=== PATIENT | female | born 1945 | race Hispanic/Latino ===

== ENCOUNTER 2016-10-06 07:15 | Day surgery (SDC) | payer MEDICARE ==
[2016-09-28 08:10] VITALS: BMI 26.9
[2016-10-06] MEDS ORDERED: Propofol 10 mg/ml Inj (20 ML) ONE (08:31)
[2016-10-06] MEDS ORDERED: Sodium Chloride 0.9% 1,000 ML IV SCH (09:00)
[2016-10-06 11:22] VITALS: BP 144/69; PULSE 53; RESP 18; TEMP 98.1; O2SAT 98
== END 2016-10-06 10:40 | disposition home or self-care (01) ==
LOC: ENDO 07:15
PROVIDERS: ATTEND Internal Medicine Gastroenterology
DX: K22.70 Barrett's esophagus without dysplasia (principal); K25.9 Gastric ulcer, unspecified as acute or chronic, without hemorrhage or perforation; K29.80 Duodenitis without bleeding; I10 Essential (primary) hypertension; J45.909 Unspecified asthma, uncomplicated
CPT/HCPCS: 43239; 88305; 88312; 88342; J2704; J7040 ×2

== ENCOUNTER 2016-12-08 08:56 | Day surgery (SDC) | payer MEDICARE ==
[2016-09-28 08:10] VITALS: BMI 26.9
[2016-12-08] MEDS ORDERED: Propofol 10 mg/ml Inj (20 ML) ONE (11:35)
[2016-12-08] MEDS ORDERED: Midazolam 2 MG/2 ML VIAL ONE (11:35)
[2016-12-08] MEDS ORDERED: Sodium Chloride 0.9% 1,000 ML IV SCH (12:00)
[2016-12-08 12:25] VITALS: PULSE 51
[2016-12-08 12:47] VITALS: BP 149/74; RESP 18; TEMP 97.9; O2SAT 98
== END 2016-12-08 13:31 | disposition home or self-care (01) ==
LOC: ENDO 08:56
PROVIDERS: ATTEND Internal Medicine Gastroenterology
DX: K25.7 Chronic gastric ulcer without hemorrhage or perforation (principal); K29.50 Unspecified chronic gastritis without bleeding
CPT/HCPCS: 43239; 88305; 88342; J2250; J2704; J7040 ×2

== ENCOUNTER 2017-12-19 12:22 | Day surgery (SDC) | payer MEDICARE, OTHER ==
[2017-12-17 14:12] VITALS: BMI 22.4
[2017-12-19 12:57] LABS: BASO # 0.05 K/mm3 (0.0-2.0); BASO % 0.5 % (0.0-3.0); EOS # 0.4 (0.0-0.7); EOS % 3.8 % (1.5-5.0); GRAN # 5.65 (1.4-6.5); GRAN % 57.7 % (50.0-68.0); HEMOGLOBIN 13.5 g/dL (12.0-16.0); LYMPH % 30.7 % (22.0-35.0); MEAN CELL VOLUME 94.9 fl (80.0-105.0); MEAN CORPUSCULAR HEMOGLOBIN 32.8 pg (25.0-35.0); MEAN CORPUSCULAR HGB CONC 34.6 g/dl (31.0-37.0); MEAN PLATELET VOLUME 9.2 fl (7.0-11.0); MONO # 0.7 (0.1-0.6); MONO % 7.3 % (1.0-6.0); RBC 4.11 10^6/uL (3.5-6.1); RED CELL DISTRIBUTION WIDTH 13.1 % (11.5-14.5); WHITE BLOOD COUNT 9.8 10^3/ul (4.5-11.0)
[2017-12-19 13:02] LABS: BLOOD UREA NITROGEN 16 mg/dL (7-21); CALCIUM 9.3 mg/dL (8.4-10.5); GFR NON-AFRICAN AMERICAN 54
[2017-12-19 13:03] LABS: INR 1.01; PARTIAL THROMBOPLASTIN TIME 30.3 Seconds (25.1-36.5); PROTHROMBIN TIME 11.5 SECONDS (9.4-12.5)
[2017-12-19] MEDS ORDERED: Lidocaine PF 2% (5 ml) Inj (For Cardiac Arrhy) ONE (13:34)
[2017-12-19] MEDS ORDERED: Midazolam 2 MG/2 ML VIAL ONE (14:35)
[2017-12-19] MEDS ORDERED: Oxycodone/Acetaminophen 5/325 mg Tab PO PRN (15:17)
[2017-12-19] MEDS ORDERED: Sodium Chloride 0.45% 1,000 ML IV SCH (15:30)
[2017-12-19] MEDS ORDERED: Metoprolol 1 mg/ml Inj IVP ONE ×6 (15:43→16:25)
--- NOTE | 2017-12-19 19:22 | VASCULAR ---
PROCEDURE: Ultrasound and fluoroscopic right internal jugular venous access port. CLINICAL HISTORY: Uterine carcinoma.Venous port for chemotherapy. PHYSICIAN(S): Riley Chan M.D. TECHNIQUE: The relative risks and indications of the procedure were explained to the patient and consent obtained. The patient was placed supine on the arteriogram table and the right neck and chest prepped and draped in the usual sterile fashion. Conscious sedation monitoring was provided throughout the procedure by a nurse. Antibiotics were given prior to the procedure. Under direct ultrasound guidance, the right internal jugular vein was punctured with a micro-puncture set. A 0.035 angled Glidewire was advanced into the IVC. A 4 cm incision was made below the right clavicle and the pocket blunted dissected. A 8 [place]ian single-lumen catheter, 21 cm long, was advanced to the SVC/RA junction. The catheter was trimmed and attached to the port. The port aspirates and injects easily. The port was placed in the pocket and closed in 2 layers. The patient tolerated the procedure well. IMPRESSION: Ultrasound and fluoroscopically placed right internal jugular venous access port.
[2017-12-19] MEDS ORDERED: diltiaZEM IVPB 100mg in NS 100 ML IV SCH (19:30)
--- NOTE | 2017-12-19 21:58 | CP.PCM.HP ---
<AsifMikal - Last Filed: 12/19/17 21:51> History of Present Illness - History of Present Illness History of Present Illness: Medicine H&P: Asif, PGY - 2, IM Resident Chief Complaint: A-Fib RVR HPI: 72 year old female pertinent medical history uterine cancer and atrial fibrillation (onset of about 2 months) presents s/p permacath placement with atrial fibrillation. Patient's family at bedside helping with history, states that patient was recently diagnosed with A-Fib but was unable to be started on anticoagulation 2/2 recent biopsies and procedures related to newly diagnosed uterine CA. Patient denies any symptoms at present including palpitaitons, chest pain, shortness of breath. Review of systems: 12 point ROS obtained and negative except as per HPI Surgical Hx: Vascular catheterizations, Biopsies, Hysterectomy, Permacath placement Medical Hx: HTN, A-Fib, Uterine CA, Constipation, GERD Allergies: NKDA Social Hx: Denies illicits, tobacco; social drinker Home Meds: As per MAR, reviewed Family Hx AMI PMD: Mutterperl Present on Admission - Present on Admission Any Indicators Present on Admission: No Past Patient History - Tetanus Immunizations Tetanus Immunization: Unknown - Past Social History Smoking Status: Never Smoked - CARDIAC Hx Pacemaker: No - NEUROLOGICAL Hx Paralysis: No - HEMATOLOGICAL/ONCOLOGICAL Hx Blood Transfusions: No - MUSCULOSKELETAL/RHEUMATOLOGICAL Hx Musculoskeletal Disorders: Yes - PSYCHIATRIC Hx Emotional Abuse: No Hx Physical Abuse: No Hx Substance Use: No - SURGICAL HISTORY Hx Surgeries: Yes - ANESTHESIA Hx Anesthesia Reactions: No Meds Home Medications: Home Medication List Medication Instructions Recorded Confirmed Type Apixaban [Eliquis] 5 mg PO BID #60 tab 12/20/17 Rx Metoprolol Succinate XL [Toprol XL] 50 mg PO BRK #60 tab 12/20/17 Rx Allergies/Adverse Reactions: Allergies Allergy/AdvReac Type Severity Reaction Status Date / Time No Known Allergies Allergy Verified 07/24/12 06:40 Physical Exam - Constitutional Appears: Well - Head Exam Head Exam: ATRAUMATIC, NORMAL INSPECTION, NORMOCEPHALIC - Eye Exam Eye Exam: EOMI, Normal appearance, PERRL Pupil Exam: NORMAL ACCOMODATION, PERRL - ENT Exam ENT Exam: Mucous Membranes Moist, Normal Exam - Neck Exam Neck exam: Positive for: Normal Inspection Additional comments: Patient has permacath recently placed - Respiratory Exam Respiratory Exam: Clear to Auscultation Bilateral, NORMAL BREATHING PATTERN - Cardiovascular Exam Cardiovascular Exam: REGULAR RHYTHM - GI/Abdominal Exam GI & Abdominal Exam: Normal Bowel Sounds, Soft. absent: Tenderness - Rectal Exam Rectal Exam: NORMAL INSPECTION - Exam Exam: Circumcision, NORMAL INSPECTION External exam: NORMAL EXTERNAL EXAM Speculum exam: NORMAL SPECULUM EXAM Bimanual exam: NORMAL BIMANUAL EXAM - Extremities Exam Extremities exam: Positive for: normal inspection - Back Exam Back exam: NORMAL INSPECTION - Neurological Exam Neurological exam: Alert, CN II-XII Intact, Normal Gait, Oriented x3, Reflexes Normal - Psychiatric Exam Psychiatric exam: Normal Affect, Normal Mood - Skin Skin Exam: Dry, Intact, Normal Color, Warm Results - Vital Signs Recent Vital Signs: Last Vital Signs Temp 97.6 F 12/19/17 15:14 Pulse 138 H 12/19/17 17:44 Resp 18 12/19/17 17:44 BP 131/95 H 12/19/17 17:44 Pulse Ox 99 12/19/17 17:44 - Labs Result Diagrams: 12/19/17 12:40 12/19/17 12:40 Labs: Laboratory Results - last 24 hr 12/19/17 12/19/17 12/19/17 12:40 12:40 12:40 WBC 9.8 RBC 4.11 Hgb 13.5 Hct 39.0 MCV 94.9 MCH 32.8 MCHC 34.6 RDW 13.1 Plt Count 291 MPV 9.2 Gran % 57.7 Lymph % (Auto) 30.7 Gregory % (Auto) 7.3 H Eos % (Auto) 3.8 Baso % (Auto) 0.5 Gran # 5.65 Lymph # (Auto) 3.0 Gregory # (Auto) 0.7 H Eos # (Auto) 0.4 Baso # (Auto) 0.05 PT 11.5 INR 1.01 APTT 30.3 Sodium 141 Potassium 3.4 L Chloride 102 Carbon Dioxide 30 Anion Gap 13 BUN 16 Creatinine 1.0 Est GFR ( Amer) > 60 Est GFR (Non-Af Amer) 54 Random Glucose 90 Calcium 9.3 Assessment & Plan - Assessment and Plan (Free Text) Assessment: 72 F s/p permacath placement with pertinent medical hx of uterine CA and A-fib presents with A-Fib with RVR Plan A-Fib with RVR - Toprol XL for rate control, once; cardizem drip - Hold anticoagulation right now, per Dr. Chan - HHD - Cardio consult Hx IBD - Continue Amitiza Hx Hypovitaminosis D - Continue Cholecalciferol Hx GERD - Continue Zantac Hx Back pain - Contnue Zanaflex GI/DVT PPx - Pepcid/SCD <Alfredo Funez - Last Filed: 12/20/17 18:28> Results - Vital Signs Recent Vital Signs: Last Vital Signs Temp 98 F 12/20/17 12:00 Pulse 70 12/20/17 12:00 Resp 18 12/20/17 12:00 BP 106/63 12/20/17 12:00 Pulse Ox 98 12/20/17 06:00 - Labs Result Diagrams: 12/20/17 06:30 12/20/17 06:30 Labs: Laboratory Results - last 24 hr 12/20/17 12/20/17 12/20/17 06:30 06:30 06:30 WBC 9.5 RBC 4.14 Hgb 13.2 Hct 39.2 MCV 94.7 MCH 31.9 MCHC 33.7 RDW 13.0 Plt Count 259 MPV 9.6 Gran % 58.1 Lymph % (Auto) 29.8 Gregory % (Auto) 8.1 H Eos % (Auto) 3.6 Baso % (Auto) 0.4 Gran # 5.53 Lymph # (Auto) 2.8 Gregory # (Auto) 0.8 H Eos # (Auto) 0.3 Baso # (Auto) 0.04 Sodium 142 Potassium 3.4 L Chloride 106 Carbon Dioxide 24 Anion Gap 16 BUN 12 Creatinine 0.8 Est GFR ( Amer) > 60 Est GFR (Non-Af Amer) > 60 Random Glucose 94 Calcium 8.4 Phosphorus 3.3 Magnesium 2.0 Total Bilirubin 0.8 AST 12 L D ALT 14 Alkaline Phosphatase 94 Troponin I Total Protein 6.4 Albumin 3.3 Globulin 3.2 Albumin/Globulin Ratio 1.0 L TSH 3rd Generation 1.93 12/20/17 06:30 WBC RBC Hgb Hct MCV MCH MCHC RDW Plt Count MPV Gran % Lymph % (Auto) Gregory % (Auto) Eos % (Auto) Baso % (Auto) Gran # Lymph # (Auto) Gregory # (Auto) Eos # (Auto) Baso # (Auto) Sodium Potassium Chloride Carbon Dioxide Anion Gap BUN Creatinine Est GFR ( Amer) Est GFR (Non-Af Amer) Random Glucose Calcium Phosphorus Magnesium Total Bilirubin AST ALT Alkaline Phosphatase Troponin I < 0.01 Total Protein Albumin Globulin Albumin/Globulin Ratio TSH 3rd Generation Attending/Attestation - Attestation I have personally seen and examined this patient.: Yes I have fully participated in the care of the patient.: Yes I have reviewed all pertinent clinical information: Yes Notes (Text): 12/20/17 17:58 Attending note; Patient seen and examined with resident in PACU. Resident note reviewed with some additions and deletions. Patient is a 72 year old female with PMH of uterine cancer and atrial fibrillation (onset of about 2 months), hysterectomy , breast biopsy is currently seen in PACU for atrial fibrillation post claribel cath placement. Patient denies any complaints. Denies any chest pain, shortness of breath. Denies any abdominal pain, nausea, vomiting. Port-A-Cath site is clean. Patient was given IV metoprolol 5 mg twice. We will admit the patient to telemetry. Will start Cardizem drip. Case discussed with cardiology Dr. Fuentes in detail. Case discussed with IR Dr. Riley Chan in detail. We will start anticoagulation tomorrow. The diagnosis, treatment option discussed with patient and patient's family in detail by the bedside. Upon discharge the patient will follow-up with PMD . Patient will follow-up with oncology Dr. Steel and cardiology Dr. Fuentes.
--- NOTE | 2017-12-19 23:18 | CARD ---
APPROVED REPORT Date of service: 12/19/2017 EKG Measurement Heart [id number] <Conclusion> Atrial fibrillation with rapid ventricular response Marked ST abnormality, possible lateral subendocardial injury Abnormal ECG
[2017-12-20] MEDS ORDERED: Pantoprazole 40 mg EC Tab PO SCH ×2 (06:00→10:00)
[2017-12-20 06:08] VITALS: O2SAT 98
[2017-12-20 07:09] LABS: BASO # 0.04 K/mm3 (0.0-2.0); BASO % 0.4 % (0.0-3.0); EOS # 0.3 (0.0-0.7); EOS % 3.6 % (1.5-5.0); GRAN # 5.53 (1.4-6.5); GRAN % 58.1 % (50.0-68.0); HEMOGLOBIN 13.2 g/dL (12.0-16.0); LYMPH # 2.8 (1.2-3.4); LYMPH % 29.8 % (22.0-35.0); MEAN CELL VOLUME 94.7 fl (80.0-105.0); MEAN CORPUSCULAR HEMOGLOBIN 31.9 pg (25.0-35.0); MEAN CORPUSCULAR HGB CONC 33.7 g/dl (31.0-37.0); MEAN PLATELET VOLUME 9.6 fl (7.0-11.0); MONO # 0.8 (0.1-0.6); MONO % 8.1 % (1.0-6.0); RBC 4.14 10^6/uL (3.5-6.1); WHITE BLOOD COUNT 9.5 10^3/ul (4.5-11.0)
[2017-12-20 07:21] LABS: ALBUMIN 3.3 g/dL (3.0-4.8); ALT/SGPT 14 U/L (7-56); AST/SGOT 12 U/L (14-36); BLOOD UREA NITROGEN 12 mg/dL (7-21); CALCIUM 8.4 mg/dL (8.4-10.5); GFR NON-AFRICAN AMERICAN > 60
[2017-12-20] MEDS ORDERED: Metoprolol Succinate 25 mg XL Tab PO SCH (08:00)
[2017-12-20] MEDS ORDERED: Potassium Chloride 10 mEq ER Tab PO ONE (08:15)
[2017-12-20] MEDS ORDERED: Metoprolol Succinate 50 mg XL Tab PO SCH (08:15)
--- NOTE | 2017-12-20 08:55 | CON ---
Copied To: Johnson Fuentes MD Attending MD: Johnson Fuentes MD DATE: 12/20/2017 CONSULTATION INDICATIONS: Atrial fibrillation. HISTORY OF PRESENT ILLNESS: This is a 72-year-old woman known to me, admitted following the placement of a port by Dr. Chan because she was found to have atrial fibrillation following the procedure. The ventricular rate was rapid to the 130s at times, although she had no symptoms. In the recovery area, she was evaluated and admitted to telemetry. She was placed on an IV Cardizem drip. This morning she is comfortable in bed and wants to go home. There is no chest pain, shortness of breath, orthopnea, PND, syncope, presyncope, lightheadedness, dizziness, vertigo, palpitation, edema, claudication, fever, chills, cough, sputum production, hemoptysis, abdominal pain, nausea, vomiting, diarrhea, constipation or melena. PAST MEDICAL HISTORY: Notable for uterine cancer, a port was placed, she is planning to have chemotherapy and radiation therapy under Dr. Steel's care. She has a recent breast lumpectomy as well. She has had paroxysmal atrial fibrillation. Anticoagulation was withheld because of the upcoming chemotherapy. She has a history of hypertension and GERD. There is no history of rheumatic fever, myocardial infarction, angina, congestive heart failure, stroke, TIA, diabetes or gout. CURRENT MEDICATIONS: Include spironolactone, Amitiza, aspirin, Protonix, Toprol, vitamins C and D, Zanaflex and Zantac. ALLERGIES: THERE ARE NO MEDICATION ALLERGIES. SOCIAL HISTORY: She lives at home. She does not smoke cigarettes. She does not drink alcohol. She is ambulatory. FAMILY HISTORY: Noncontributory. REVIEW OF SYSTEMS: A 10-point review of systems otherwise unremarkable except as noted above. PHYSICAL EXAMINATION: GENERAL: She is well-developed elderly woman lying in bed on telemetry, in no acute distress. VITAL SIGNS: She is in atrial fibrillation, 82-138 beats per minute. She is afebrile. Blood pressure 108/65, respirations 20, O2 sat 95%-99% on nasal cannula on room air. HEENT: Exam reveals no neck vein distention, thyromegaly, carotid bruits. There is a bandage in the right clavicular area. LUNGS: Lung matute are clear. HEART: Normal first and second heart sounds, irregular pulse, soft systolic murmur. ABDOMEN: Soft. Bowel sounds present. No mass, organomegaly, tenderness, rebound, guarding, CVA tenderness, or palpable abdominal aortic aneurysm. EXTREMITIES: Exam revealed no cyanosis, clubbing or edema. NEUROLOGICALLY: She is awake, alert and oriented. SKIN: Warm and dry. No rash or cellulitis. LABORATORY DATA AND IMAGING: EKG demonstrated atrial fibrillation with rapid ventricular response. There were ST-T wave changes. This was new compared to a prior EKG that showed sinus rhythm. Fluoroscopy from the port procedure is noted. CBC is unremarkable. PT/INR, PTT unremarkable. Electrolytes, BUN, creatinine, blood sugar, calcium, LFTs all unremarkable except for potassium of 3.4. TSH is normal. IMPRESSION: Bing Perea is a 72-year-old woman with paroxysmal atrial fibrillation with an episode of atrial fibrillation, probably related to the catheter or wires utilized during the procedure. She is currently on Toprol 25 mg daily. I will increase that to 50 mg daily. We will start her on Eliquis. When Dr. Steel returns from vacation, we will discuss whether or not long-term anticoagulation can be continued or would need to be discontinued for the purposes of chemotherapy. I will arrange for followup in my office. We will replace potassium. We will continue spironolactone and her other medications as per her medical physicians. I will follow along with you. I will order a CXR to confirm port tip positioning. I have discussed the case with Dr. Chan. I will make additional recommendations based on her clinical course. Hopefully she will be discharged later today with outpatient followup. Johnson Fuentes MD [facility]
[2017-12-20] MEDS ORDERED: LUBIPROSTONE 8 MCG PO SCH (10:00)
[2017-12-20] MEDS ORDERED: ASCORBIC ACID 1000 MG PO SCH (10:00)
[2017-12-20] MEDS ORDERED: Cholecalciferol 1,000 INTLU TAB PO SCH (10:00)
--- NOTE | 2017-12-20 10:48 | RAD ---
Date of service: 12/20/2017 HISTORY: Check port placement COMPARISON: 09/05/2017 TECHNIQUE: Chest PA and lateral FINDINGS: LUNGS: The right internal jugular Port-A-Cath terminates at the junction of the SVC and right atrium. There is no pneumothorax PLEURA: No significant pleural effusion identified. No pneumothorax apparent. CARDIOVASCULAR: Normal. OSSEOUS STRUCTURES: No significant abnormalities. VISUALIZED UPPER ABDOMEN: Normal. OTHER FINDINGS: None. IMPRESSION: The right internal jugular Port-A-Cath terminates at the junction of the SVC and right atrium. There is no pneumothorax
[2017-12-20 12:05] VITALS: BP 106/63; PULSE 70; RESP 18; TEMP 98
--- NOTE | 2017-12-20 12:20 | CP.PCM.DIS ---
<Ba Ziegler - Last Filed: 12/20/17 18:17> Provider - Provider Date of Admission: 12/19/17 Attending physician: Alfredo Funez MD Primary care physician: Patricio Blake MD Time Spent in preparation of Discharge (in minutes): 25 Diagnosis - Discharge Diagnosis (1) Atrial fibrillation with RVR Status: Resolved Priority: High (2) Permanent central venous catheter in place Status: Acute Priority: High Comment: Placement done by IR on date of admission (3) Uterine cancer Status: Chronic Priority: High Hospital Course - Lab Results Lab Results: Most Recent Lab Values WBC 9.5 10^3/ul (4.5-11.0) 12/20/17 06:30 RBC 4.14 10^6/uL (3.5-6.1) 12/20/17 06:30 Hgb 13.2 g/dL (12.0-16.0) 12/20/17 06:30 Hct 39.2 % (36.0-48.0) 12/20/17 06:30 MCV 94.7 fl (80.0-105.0) 12/20/17 06:30 MCH 31.9 pg (25.0-35.0) 12/20/17 06:30 MCHC 33.7 g/dl (31.0-37.0) 12/20/17 06:30 RDW 13.0 % (11.5-14.5) 12/20/17 06:30 Plt Count 259 10^3/uL (120.0-450.0) 12/20/17 06:30 MPV 9.6 fl (7.0-11.0) 12/20/17 06:30 Gran % 58.1 % (50.0-68.0) 12/20/17 06:30 Lymph % (Auto) 29.8 % (22.0-35.0) 12/20/17 06:30 [place] % (Auto) 8.1 % (1.0-6.0) H 12/20/17 06:30 Eos % (Auto) 3.6 % (1.5-5.0) 12/20/17 06:30 Baso % (Auto) 0.4 % (0.0-3.0) 12/20/17 06:30 Gran # 5.53 (1.4-6.5) 12/20/17 06:30 Lymph # (Auto) 2.8 (1.2-3.4) 12/20/17 06:30 [place] # (Auto) 0.8 (0.1-0.6) H 12/20/17 06:30 Eos # (Auto) 0.3 (0.0-0.7) 12/20/17 06:30 Baso # (Auto) 0.04 K/mm3 (0.0-2.0) 12/20/17 06:30 PT 11.5 SECONDS (9.4-12.5) 12/19/17 12:40 INR 1.01 12/19/17 12:40 APTT 30.3 Seconds (25.1-36.5) 12/19/17 12:40 Sodium 142 mmol/L (132-148) 12/20/17 06:30 Potassium 3.4 mmol/L (3.6-5.0) L 12/20/17 06:30 Chloride 106 mmol/L (98-107) 12/20/17 06:30 Carbon Dioxide 24 mmol/L (21-33) 12/20/17 06:30 Anion Gap 16 (10-20) 12/20/17 06:30 BUN 12 mg/dL (7-21) 12/20/17 06:30 Creatinine 0.8 mg/dl (0.7-1.2) 12/20/17 06:30 Est GFR ( Amer) > 60 12/20/17 06:30 Est GFR (Non-Af Amer) > 60 12/20/17 06:30 Random Glucose 94 mg/dL (70-110) 12/20/17 06:30 Calcium 8.4 mg/dL (8.4-10.5) 12/20/17 06:30 Phosphorus 3.3 mg/dL (2.5-4.5) 12/20/17 06:30 Magnesium 2.0 mg/dL (1.7-2.2) 12/20/17 06:30 Total Bilirubin 0.8 mg/dL (0.2-1.3) 12/20/17 06:30 AST 12 U/L (14-36) L D 12/20/17 06:30 ALT 14 U/L (7-56) 12/20/17 06:30 Alkaline Phosphatase 94 U/L (38-126) 12/20/17 06:30 Troponin I < 0.01 ng/mL 12/20/17 06:30 Total Protein 6.4 g/dL (5.8-8.3) 12/20/17 06:30 Albumin 3.3 g/dL (3.0-4.8) 12/20/17 06:30 Globulin 3.2 gm/dL 12/20/17 06:30 Albumin/Globulin Ratio 1.0 (1.1-1.8) L 12/20/17 06:30 TSH 3rd Generation 1.93 mIU/mL (0.46-4.68) 12/20/17 06:30 - Hospital Course Hospital Course: This is a 72 yo F with PMH of Paroxysmal AFib with RVR dx 2 months prior (NOT on anticoagulation), and recently diagnosed Uterine Cancer who presented with for IR placement of Permacath (for chemotherapy). Pt presented in afib, but post-procedure, patient was noted to be in afib with RVR, so Cardizem drip was started and patient was transferred to telemetry floor for observation and management. Today, patient converted back to sinus rhythm on Cardizem drip. As per Cardio, her Toprol XL will be increased to 50mg daily, and pt was started on Eliquis for anticoagulation. Cardio stated he will follow up with patient's Heme-onc regarding long-term anticoagulation (not started at time of AFib dx due to multiple recent biopsies and procedures 2/2 recent uterine cancer diagnosis). Patient was cleared to be discharged. Patient instructed to stop old dose of Toprol XL and start new dose today ( first dose given in hospital prior to discharge). She was also instructed to continue her Eliquis as per Cardiology. Prescriptions for both new medications were electronically transmitted to the in-house outpatient pharmacy for availability at time of discharge. Patient was instructed to resume all other home medications as previously prescribed. She was instructed to follow up with her PMD (Dr. Blake) and Cardiology (Dr. Fuentes), both within 1 week of discharge. Patient expressed understanding and agreement with these instructions. All questions answered to her satisfaction, and then patient was discharged to home. Seen, reviewed, and discussed with attending, Dr. Funez. Discharge Exam - Head Exam Head Exam: ATRAUMATIC, NORMAL INSPECTION, NORMOCEPHALIC - Eye Exam Eye Exam: EOMI, Normal appearance. absent: Conjunctival injection, Scleral icterus Pupil Exam: absent: Fixed, Irregular - ENT Exam ENT Exam: Mucous Membranes Moist - Neck Exam Neck exam: Full Rom, Normal Inspection Additional comments: Bandaging overlying right neck and chest wall (at site of permacath placement), no strikethrough bleeding appreciated - Respiratory Exam Respiratory Exam: Clear to PA & Lateral, NORMAL BREATHING PATTERN, UNREMARKABLE. absent: Accessory Muscle Use, Chest Wall Tenderness, Decreased Breath Sounds, Rales, Rhonchi, Wheezes, Respiratory Distress - Cardiovascular Exam Cardiovascular Exam: +S1, +S2. absent: Diastolic murmur, JVD, RRR, +S4, Systolic Murmur Additional comments: Initially irregular rate and rhythm, with HR ranging from 90's-110's on telemetry monitoring on repeat exam, sinus rhythm in 60's Good peripheral pulses throughout (+2 radials and dorsalis pedis bilaterally) - GI/Abdominal Exam GI & Abdominal Exam: Normal Bowel Sounds, Soft, Unremarkable. absent: Tenderness - Extremities Exam Additional comments: Normal inspection, no pitting edema in bilateral LE +2 dorsalis pedis and radial pulses, no tenderness or erythema in bilateral UE and LE - Neurological Exam Additional comments: awake and alert, following all commands appropriately, moving all extremities spontaneously, neuro and motor appear grossly intact and equal - Psychiatric Exam Psychiatric exam: Normal Affect, Normal Mood - Skin Skin Exam: Dry, Intact, Normal Color, Warm Discharge Plan - Discharge Medications Prescriptions: Apixaban [Eliquis] 5 mg PO BID #60 tab Metoprolol Succinate XL [Toprol XL] 50 mg PO BRK #60 tab - Follow Up Plan Condition: GOOD Disposition: HOME/ ROUTINE Instructions: Atrial Fibrillation (DC), Apixaban, Medicines for Atrial Fibrillation Additional Instructions: You were seen in the hospital for placement of a Perm-a-cath. After the procedure, you developed an episode of Atrial Fibrillation with Rapid Ventricular Response (RVR) requiring a Cardizem drip to control the rate. Your heart rate has now returned to normal sinus rhythm, and you have been taken off the drip and put back on oral medications for heart rate control. -Please follow up with your PMD (Dr. Blake) within 1 week of discharge. -Please follow up with the Director [facility] (Dr. Fuentes) within 1 week of discharge. -Please stop your original dose of Metoprolol (25mg) and start the new dose as listed below. -Prescriptions for your 2 new medications (Toprol XL and Eliquis) will be provided to you by our in-house outpatient pharmacy at time of discharge, via our [id number] program. -You are being started on a blood thinner. You may notice that you easily bruise while on this medication. If at any time on this medication, you fall and hit your head, you must immediately go to the nearest Emergency Department to obtain a Head CT, to rule out bleeding in the brain. -If you experience worsening or newly concerning symptoms, please return to the nearest Emergency Department. These are the medications you should be taking at home: -Vitamin C 1000mg daily -Aspirin 81mg daily -Vitamin D 1000 units daily -Amitiza 8 mcg daily -Toprol XL 50mg daily (NEW) -Protonix 40mg daily -Zantac 150mg nightly -Aldactone 25mg daily -Zanaflex 4mg PO nightly -Eliquis 5mg twice per day Referrals: Johnson Fuentes MD [Staff Provider] - Patricio Blake MD [Primary Care Provider] - <Alfredo Funez - Last Filed: 12/21/17 14:17> Provider - Provider Attending physician: Alfredo Funez MD Primary care physician: Patricio Blake MD Hospital Course - Lab Results Lab Results: Most Recent Lab Values WBC 9.5 10^3/ul (4.5-11.0) 12/20/17 06:30 RBC 4.14 10^6/uL (3.5-6.1) 12/20/17 06:30 Hgb 13.2 g/dL (12.0-16.0) 12/20/17 06:30 Hct 39.2 % (36.0-48.0) 12/20/17 06:30 MCV 94.7 fl (80.0-105.0) 12/20/17 06:30 MCH 31.9 pg (25.0-35.0) 12/20/17 06:30 MCHC 33.7 g/dl (31.0-37.0) 12/20/17 06:30 RDW 13.0 % (11.5-14.5) 12/20/17 06:30 Plt Count 259 10^3/uL (120.0-450.0) 12/20/17 06:30 MPV 9.6 fl (7.0-11.0) 12/20/17 06:30 Gran % 58.1 % (50.0-68.0) 12/20/17 06:30 Lymph % (Auto) 29.8 % (22.0-35.0) 12/20/17 06:30 [place] % (Auto) 8.1 % (1.0-6.0) H 12/20/17 06:30 Eos % (Auto) 3.6 % (1.5-5.0) 12/20/17 06:30 Baso % (Auto) 0.4 % (0.0-3.0) 12/20/17 06:30 Gran # 5.53 (1.4-6.5) 12/20/17 06:30 Lymph # (Auto) 2.8 (1.2-3.4) 12/20/17 06:30 [place] # (Auto) 0.8 (0.1-0.6) H 12/20/17 06:30 Eos # (Auto) 0.3 (0.0-0.7) 12/20/17 06:30 Baso # (Auto) 0.04 K/mm3 (0.0-2.0) 12/20/17 06:30 PT 11.5 SECONDS (9.4-12.5) 12/19/17 12:40 INR 1.01 12/19/17 12:40 APTT 30.3 Seconds (25.1-36.5) 12/19/17 12:40 Sodium 142 mmol/L (132-148) 12/20/17 06:30 Potassium 3.4 mmol/L (3.6-5.0) L 12/20/17 06:30 Chloride 106 mmol/L (98-107) 12/20/17 06:30 Carbon Dioxide 24 mmol/L (21-33) 12/20/17 06:30 Anion Gap 16 (10-20) 12/20/17 06:30 BUN 12 mg/dL (7-21) 12/20/17 06:30 Creatinine 0.8 mg/dl (0.7-1.2) 12/20/17 06:30 Est GFR ( Amer) > 60 12/20/17 06:30 Est GFR (Non-Af Amer) > 60 12/20/17 06:30 Random Glucose 94 mg/dL (70-110) 12/20/17 06:30 Calcium 8.4 mg/dL (8.4-10.5) 12/20/17 06:30 Phosphorus 3.3 mg/dL (2.5-4.5) 12/20/17 06:30 Magnesium 2.0 mg/dL (1.7-2.2) 12/20/17 06:30 Total Bilirubin 0.8 mg/dL (0.2-1.3) 12/20/17 06:30 AST 12 U/L (14-36) L D 12/20/17 06:30 ALT 14 U/L (7-56) 12/20/17 06:30 Alkaline Phosphatase 94 U/L (38-126) 12/20/17 06:30 Troponin I < 0.01 ng/mL 12/20/17 06:30 Total Protein 6.4 g/dL (5.8-8.3) 12/20/17 06:30 Albumin 3.3 g/dL (3.0-4.8) 12/20/17 06:30 Globulin 3.2 gm/dL 12/20/17 06:30 Albumin/Globulin Ratio 1.0 (1.1-1.8) L 12/20/17 06:30 TSH 3rd Generation 1.93 mIU/mL (0.46-4.68) 12/20/17 06:30 Attending/Attestation - Attestation I have personally seen and examined this patient.: Yes I have fully participated in the care of the patient.: Yes I have reviewed all pertinent clinical information, including history, physical exam and plan: Yes Notes (Text): 12/21/17 14:13 Attending note; Patient seen and examined with resident. Patient is a 72 year old female with PMH of uterine cancer and atrial fibrillation (onset of about 2 months), hysterectomy , breast biopsy is currently admitted for atrial fibrillation post claribel cath placement. Patient denies any complaints. Denies any chest pain, shortness of breath. Denies any abdominal pain, nausea, vomiting. Port-A-Cath site is clean. Patient was treated with Cardizem drip. Metoprolol dosage increased to 50 mg daily. Currently converted to normal sinus rhythm. Heart rate in 70s to 80s. cardiology evaluation with Dr. Fuentes appreciated. Started on eliquis. Discharge home today. The diagnosis, treatment option discussed with patient and patient's family in detail by the bedside. Upon discharge the patient will follow-up with PMD . Patient will follow-up with oncology Dr. Steel and cardiology Dr. Fuentes. 12/21/17 14:16
[2017-12-20] MEDS ORDERED: Non Formulary Medication (Ranitidine Hcl [Zantac] 150 MG) PO SCH (18:00)
--- NOTE | 2017-12-20 19:06 | CARD ---
APPROVED REPORT Date of service: 12/20/2017 EKG Measurement Heart [id number] <Conclusion> Normal sinus rhythm Inferior infarct, age undetermined Cannot rule out Anterior infarct, age undetermined Abnormal ECG
--- NOTE | 2017-12-20 19:20 | CARD ---
APPROVED REPORT Date of service: 12/20/2017 EKG Measurement Heart [id number] <Conclusion> Atrial fibrillation with rapid ventricular response ST depression, consider subendocardial injury or digitalis effect Nonspecific T wave abnormality, probably digitalis effect Abnormal ECG
== END 2017-12-20 13:30 | disposition home or self-care (01) ==
LOC: SDS 12:22 → 2RSO 19:46 → SDS 12-20 13:30
PROVIDERS: ATTEND Internal Medicine
DX: C54.1 Malignant neoplasm of endometrium (principal); I48.0 Paroxysmal atrial fibrillation; I10 Essential (primary) hypertension; K58.9 Irritable bowel syndrome, unspecified; E55.9 Vitamin D deficiency, unspecified; K21.9 Gastro-esophageal reflux disease without esophagitis
CPT/HCPCS: 36415 ×2; 36561; 71046; 76937; 77001; 80048; 80053; 83735; 84100; 84443; 84484; 85025 ×2; 85610; 85730; 93005 ×2; 99152; 99153; C1769; C1788; J0690; J1644; J2250; J2405; J3010; J7030 ×2

== ENCOUNTER 2018-07-18 10:44 | Outpatient (CLI) | payer MEDICARE, OTHER | END 2018-07-18 10:45 | disposition home or self-care (01) | LOC: RAD 10:45 ==